=== PATIENT | female | born 1950 | race Caucasian/White ===

== ENCOUNTER 2019-02-25 15:01 | Observation (INO) ==
[2019-02-25] MEDS ORDERED: ONDANSETRON 4 MG/2 ML VIAL IV STA (15:28)
[2019-02-25] MEDS ORDERED: PANTOPRAZOLE 40 MG VIAL IV STA (15:28)
[2019-02-25 15:55] LABS: Basophils % 0.4 % (0.0-0.8); Eosinophils % 0.4 % (0.00-10.9); Hematocrit 43.2 VOL% (35.7-47.0); Hemoglobin 14.4 GM/DL (12.0-16.0); Immature Granulocytes % 0.4 %; Immature Granulocytes Absolute 0.04 #; Lymphocytes # 1.3 10*3/uL (1.4-4.0); Lymphocytes % 11.7 % (21.3-54.2); Mean Corpuscular HGB Conc 33.3 GM/DL (32-36); Mean Corpuscular Volume 88.5 FL (87-102); Mean Platelet Volume 9.3 FL (9.6-12.0); Monocytes % 5.4 % (1.7-12.7); Neutrophils % 81.7 % (38.7-73.9); Platelet Count 255 T/CUMM (130-400); Red Blood Count 4.88 MC/CUMM (3.8-5.5); Red Cell Distribution Width 14.5 % (9.3-17.3); White Blood Count 11.2 T/CUMM (4-12)
[2019-02-25 16:17] LABS: PT Patient Result 10.9 SECS (9.6-12.2); Partial Thromboplastin Time 25.9 SECS (20.8-36.0)
[2019-02-25 16:21] LABS: Albumin 3.7 G/DL (3.4-5.0); Bilirubin,Total 0.6 MG/DL (0.2-1.0); Calcium 10.1 MG/DL (8.5-10.1); Osmolality,Calculated 272.5 MOS/KG (273-304); Total Protein 8.8 G/DL (6.4-8.3)
[2019-02-25] MEDS ORDERED: SODIUM CHLORIDE 0.9% 1,000 ML IV STA (16:58)
[2019-02-25] MEDS ORDERED: ONDANSETRON 4 MG/2 ML VIAL IV PRN (18:22)
[2019-02-25] MEDS ORDERED: ACETAMINOPHEN 325 MG TABLET PO PRN (18:22)
[2019-02-25] MEDS ORDERED: traZODone 50 MG TABLET PO PRN (18:31)
[2019-02-25] MEDS ORDERED: ENOXAPARIN 40 MG/0.4 ML SYRINGE SUBCUT SCH (21:00)
[2019-02-25 21:42] LABS: Hematocrit 40.4 VOL% (35.7-47.0); Hemoglobin 13.5 GM/DL (12.0-16.0)
[2019-02-25] MEDS: OXcarbazepine 300 MG TABLET PO SCH (21:46)
[2019-02-25] MEDS: QUEtiapine 100 MG TABLET PO SCH (21:47)
[2019-02-25] MEDS: ALLOPURINOL 100 MG TABLET PO SCH (21:47)
[2019-02-25] MEDS: GABAPENTIN 400 MG CAPSULE PO SCH (21:54)
[2019-02-25] MEDS: SODIUM CHLORIDE 0.9% 1,000 ML IV SCH (21:58)
[2019-02-26 03:00] LABS: Basophils # 0.1 10*3/uL (0.0-0.2); Basophils % 0.5 % (0.0-0.8); Eosinophils # 0.1 10*3/uL (0.0-0.87); Eosinophils % 0.7 % (0.00-10.9); Hematocrit 38.6 VOL% (35.7-47.0); Immature Granulocytes % 0.5 %; Immature Granulocytes Absolute 0.06 #; Lymphocytes # 3.5 10*3/uL (1.4-4.0); Lymphocytes % 27.7 % (21.3-54.2); Mean Corpuscular HGB Conc 33.7 GM/DL (32-36); Mean Corpuscular Volume 89.4 FL (87-102); Mean Platelet Volume 9.3 FL (9.6-12.0); Neutrophils % 62.6 % (38.7-73.9); Platelet Count 238 T/CUMM (130-400); Red Blood Count 4.32 MC/CUMM (3.8-5.5); Red Cell Distribution Width 14.5 % (9.3-17.3); White Blood Count 12.8 T/CUMM (4-12)
[2019-02-26 03:15] LABS: Calcium 9.1 MG/DL (8.5-10.1); Osmolality,Calculated 274.1 MOS/KG (273-304); Risk Ratio 2.96; Thyroid Stimulating Hormone 0.292 uIU/ml (0.358-3.74); VLDL CHOLESTEROL 16.6 MG/DL
[2019-02-26 05:49] LABS: INR 0.9; PT Patient Result 10.3 SECS (9.6-12.2)
[2019-02-26] MEDS: SODIUM CHLORIDE 0.9% 1,000 ML IV SCH (06:39)
[2019-02-26] MEDS ORDERED: hydroCHLOROthiazide 12.5 MG CAPSULE PO SCH (09:00)
[2019-02-26] MEDS ORDERED: LEVOTHYROXINE 100 MCG TABLET PO SCH (09:00)
[2019-02-26] MEDS ORDERED: PANTOPRAZOLE 40 MG TABLET PO SCH (09:00)
[2019-02-26] MEDS: GABAPENTIN 400 MG CAPSULE PO SCH (09:30)
[2019-02-26] MEDS: QUEtiapine 100 MG TABLET PO SCH (09:33)
[2019-02-26] MEDS: OXcarbazepine 300 MG TABLET PO SCH (09:34)
[2019-02-26] MEDS: ALLOPURINOL 100 MG TABLET PO SCH (09:35)
[2019-02-26 10:30] LABS: Hemoglobin 11.6 GM/DL (12.0-16.0)
[2019-02-26 12:17] VITALS: BP 124/68
== END 2019-02-26 15:15 | disposition home or self-care (01) ==
LOC: N.ED 15:01 → N.EDINP 18:22 → INTOOBSV 18:22 → N.5E 20:01
PROVIDERS: ADMIT Internal Medicine; ATTEND Internal Medicine

== ENCOUNTER 2019-06-30 05:25 | Inpatient (IN) ==
[2019-06-30] MEDS ORDERED: NALOXONE 0.4 MG/ML VIAL IV ONE (05:31)
[2019-06-30] MEDS ORDERED: ATROPINE 1 MG/10 ML SYRINGE IV ONE (05:31)
[2019-06-30] MEDS ORDERED: VECURONIUM 10 MG VIAL IV ONE (05:35)
[2019-06-30] MEDS ORDERED: VECURONIUM 10 MG VIAL IV STA (05:42)
[2019-06-30] MEDS ORDERED: ETOMIDATE 20 MG/10 ML VIAL IV ONE (05:42)
[2019-06-30 05:45] LABS: ABG Base Excess -8.4 MMOL/L (-2.5-2.5); ABG HCO3 17.7 MMOL/L (20-26); ABG Oxygen Saturation 95.9 % (95-100); ABG PCO2 37.4 MM HG (35-48); ABG PH 7.285 (7.35-7.45); ABG PO2 90.7 MM HG (80-95); ABG TCO2 15.9 MMOL/L (23-27); Allen Test Positive
[2019-06-30 05:46] LABS: Basophils # 0.1 10*3/uL (0.0-0.2); Basophils % 0.7 % (0.0-0.8); Eosinophils # 0.3 10*3/uL (0.0-0.87); Hematocrit 40.1 VOL% (35.7-47.0); Hemoglobin 12.5 GM/DL (12.0-16.0); Immature Granulocytes % 0.7 %; Immature Granulocytes Absolute 0.09 #; Lymphocytes # 5.5 10*3/uL (1.4-4.0); Mean Corpuscular HGB Conc 31.2 GM/DL (32-36); Mean Corpuscular Volume 92.8 FL (87-102); Mean Platelet Volume 9.9 FL (9.6-12.0); Monocytes % 7.3 % (1.7-12.7); Neutrophils % 48.3 % (38.7-73.9); Platelet Count 281 T/CUMM (130-400); Red Blood Count 4.32 MC/CUMM (3.8-5.5); White Blood Count 13.5 T/CUMM (4-12)
[2019-06-30] MEDS ORDERED: SODIUM CHLORIDE 0.9% 1,000 ML IV STA (05:52)
[2019-06-30] MEDS ORDERED: SODIUM BICARBONATE 50 MEQ/50 ML VIAL IV STA (06:00)
[2019-06-30 06:01] LABS: PT Patient Result 11.1 SECS (9.6-12.2)
[2019-06-30 06:09] LABS: Alanine Aminotransferase 18 U/L (13-56); Albumin 3.1 G/DL (3.4-5.0); Alkaline Phosphatase 91 U/L (45-117); Aspartate Amino Transferase 21 U/L (0-37); Bilirubin,Total < 0.39 MG/DL (0.2-1.0); Blood Urea Nitrogen 28 MG/DL (7-18); Calcium 8.5 MG/DL (8.5-10.1); Estimated Glom Filtration Rate 0 ML/MIN; Glucose 306 MG/DL (74-106); Osmolality,Calculated 292.7 MOS/KG (273-304); Total Protein 7.1 G/DL (6.4-8.3)
[2019-06-30] MEDS ORDERED: MIDAZOLAM 2 MG/2 ML VIAL ONE (06:09)
[2019-06-30] MEDS ORDERED: LIDOCAINE 1%/EPI INJ 20 ML VIAL ONE (06:09)
[2019-06-30] MEDS ORDERED: fentaNYL 100 MCG/2 ML VIAL ONE (06:09)
[2019-06-30] MEDS ORDERED: PHENYLEPHRINE DRIP 40 MG/250 ML PREMIX IV PRN (06:10)
[2019-06-30] MEDS ORDERED: PHENYLEPHRINE DRIP 40 MG/250 ML PREMIX IV ONE (06:13)
[2019-06-30 07:08] LABS: Apearance,Urine CLEAR (Clear); Bacteria,Urine Many /HPF (Few); Bilirubin,Urine Negative (Negative); Blood, Urine Negative (Negative); Glucose,Urine (UA) Negative (Negative); Ketones,Urine Negative (Negative); Nitrite,Urine Positive (Negative); Protein,Urine Negative; RBC,Urine 3 /HPF (0-4); Squamous Epithelial Cell,Urine Occasional /HPF (0-10); Urine Color Yellow (Yellow); Urine Specific Gravity 1.025 (1.001-1.035); Urine Urobilinogen < 2.0 EU/DL (0.2-1.0); WBC,Urine 5 /HPF (0-6)
[2019-06-30 07:13] LABS: Barbiturates Screen,Urine Negative (Negative); Benzodiazepines Screen,Urine Negative (Negative); Cannabinoid Screen,Urine Negative (Negative); Opiate Screen,Urine Negative (Negative); Phencyclidine Screen,Urine Negative (Negative)
[2019-06-30] MEDS: SODIUM CHLORIDE 0.9% 1,000 ML IV SCH ×2 (07:30→17:12)
[2019-06-30] MEDS: MORPHINE 4 MG/1 ML VIAL IV PRN ×10 (09:29→22:09)
[2019-06-30 10:32] LABS: Troponin I 0.383 NG/ML (0.00-0.045)
[2019-06-30 17:00] LABS: Calcium 8.5 MG/DL (8.5-10.1); Osmolality,Calculated 283.4 MOS/KG (273-304)
[2019-07-01] MEDS: SODIUM CHLORIDE 0.9% 1,000 ML IV SCH ×3 (00:22→15:09)
[2019-07-01] MEDS: MORPHINE 4 MG/1 ML VIAL IV PRN ×2 (04:52→21:43)
[2019-07-01 05:22] LABS: Basophils % 0.5 % (0.0-0.8); Eosinophils # 0.2 10*3/uL (0.0-0.87); Eosinophils % 2.2 % (0.00-10.9); Hematocrit 41.4 VOL% (35.7-47.0); Immature Granulocytes % 0.3 %; Immature Granulocytes Absolute 0.03 #; Lymphocytes % 33.4 % (21.3-54.2); Mean Corpuscular HGB Conc 31.4 GM/DL (32-36); Mean Corpuscular Volume 91.6 FL (87-102); Monocytes % 8.6 % (1.7-12.7); Platelet Count 166 T/CUMM (130-400); Red Blood Count 4.52 MC/CUMM (3.8-5.5); Red Cell Distribution Width 13.7 % (9.3-17.3); White Blood Count 8.8 T/CUMM (4-12)
[2019-07-01 05:35] LABS: Calcium 8.1 MG/DL (8.5-10.1); Osmolality,Calculated 277.7 MOS/KG (273-304)
[2019-07-01] MEDS ORDERED: MAGNESIUM SULF RIDER 4 GM in PREMIX 1 EACH IV PRN (05:48)
[2019-07-01] MEDS: MAGNESIUM SULF RIDER 2 GM in PREMIX 1 EACH IV PRN (06:01)
[2019-07-01] MEDS ORDERED: ACETAMINOPHEN 325 MG TABLET PO PRN (07:25)
[2019-07-01] MEDS: ONDANSETRON 4 MG/2 ML VIAL IV PRN (07:44)
[2019-07-01 08:04] LABS: Troponin I 0.473 NG/ML (0.00-0.045)
[2019-07-01] MEDS: allopurinoL 100 MG TABLET PO SCH ×2 (11:13→22:08)
[2019-07-01] MEDS: LEVOTHYROXINE 100 MCG TABLET PO SCH (11:13)
[2019-07-01] MEDS: cefTRIAXone 1,000 MG in SYRINGE 1 EACH IV SCH (11:14)
[2019-07-01] MEDS: QUEtiapine 100 MG TABLET PO SCH ×2 (11:14→22:05)
[2019-07-01] MEDS: GABAPENTIN 400 MG CAPSULE PO SCH ×2 (15:09→22:07)
[2019-07-01] MEDS: OXcarbazepine 300 MG TABLET PO SCH (22:07)
[2019-07-02] MEDS: MORPHINE 4 MG/1 ML VIAL IV PRN ×2 (01:37→05:32)
[2019-07-02] MEDS: ONDANSETRON 4 MG/2 ML VIAL IV PRN ×2 (01:37→21:23)
[2019-07-02] MEDS: QUEtiapine 100 MG TABLET PO SCH ×2 (08:36→21:18)
[2019-07-02] MEDS: LEVOTHYROXINE 100 MCG TABLET PO SCH (08:37)
[2019-07-02] MEDS: allopurinoL 100 MG TABLET PO SCH ×2 (08:37→21:21)
[2019-07-02] MEDS: GABAPENTIN 400 MG CAPSULE PO SCH ×3 (08:37→21:21)
[2019-07-02] MEDS: OXcarbazepine 300 MG TABLET PO SCH ×2 (08:37→21:19)
[2019-07-02] MEDS: cefTRIAXone 1,000 MG in SYRINGE 1 EACH IV SCH (10:06)
[2019-07-02 10:30] LABS: Osmolality,Calculated 279.5 MOS/KG (273-304)
[2019-07-02] MEDS ORDERED: MAGNESIUM SULF RIDER 2 GM in PREMIX 1 EACH IV ONE (11:17)
[2019-07-02] MEDS ORDERED: MAGNESIUM GLUCONATE 500 MG TABLET PO ONE (11:20)
[2019-07-02] MEDS ORDERED: POTASSIUM CHLORIDE 20 MEQ TABLET PO ONE (11:21)
[2019-07-02 14:21] LABS: Troponin I 0.118 NG/ML (0.00-0.045)
[2019-07-02 14:23] LABS: ABG Base Excess 4.1 MMOL/L (-2.5-2.5); ABG Oxygen Saturation 96.2 % (95-100); ABG PCO2 50.6 MM HG (35-48); ABG PH 7.384 (7.35-7.45); ABG PO2 81.1 MM HG (80-95); ABG TCO2 26.9 MMOL/L (23-27); Allen Test Positive
[2019-07-02] MEDS: SODIUM CHLORIDE 0.9% 1,000 ML IV SCH (15:46)
[2019-07-02] MEDS: APIXABAN 5 MG TABLET PO SCH (21:21)
[2019-07-03] MEDS: SODIUM CHLORIDE 0.9% 1,000 ML IV SCH (06:32)
[2019-07-03] MEDS: OXcarbazepine 300 MG TABLET PO SCH (08:54)
[2019-07-03] MEDS: LEVOTHYROXINE 100 MCG TABLET PO SCH (08:54)
[2019-07-03] MEDS: GABAPENTIN 400 MG CAPSULE PO SCH ×2 (08:54→14:22)
[2019-07-03] MEDS: QUEtiapine 100 MG TABLET PO SCH (08:55)
[2019-07-03] MEDS: APIXABAN 5 MG TABLET PO SCH (08:56)
[2019-07-03] MEDS: allopurinoL 100 MG TABLET PO SCH (08:56)
[2019-07-03] MEDS ORDERED: lisinopriL 5 MG TABLET PO SCH (09:02)
[2019-07-03 10:09] LABS: Calcium 8.6 MG/DL (8.5-10.1); Osmolality,Calculated 275.7 MOS/KG (273-304)
[2019-07-03] MEDS: MAGNESIUM SULF RIDER 2 GM in PREMIX 1 EACH IV PRN (10:57)
[2019-07-03] MEDS: cefTRIAXone 1,000 MG in SYRINGE 1 EACH IV SCH (10:57)
[2019-07-03 16:36] VITALS: BP 133/86
== END 2019-07-03 17:13 | disposition home or self-care (01) | DRG 917 ==
LOC: EDBD → EDUNIT# → N.ED 05:25 → N.EDINP 05:25 → N.ICU 06:21 → SUATTDRO 09:22 → N.TELEN 07-01 14:07
PROVIDERS: ADMIT Internal Medicine; ATTEND Internal Medicine

== ENCOUNTER 2020-09-12 04:23 | Inpatient (IN) ==
[2020-09-12] MEDS ORDERED: ASPIRIN 325 MG TABLET PO STA (04:50)
[2020-09-12] MEDS ORDERED: ONDANSETRON 4 MG/2 ML VIAL IV STA (04:50)
[2020-09-12] MEDS ORDERED: VECURONIUM 10 MG VIAL IV ONE ×2 (05:25→05:34)
[2020-09-12 05:26] LABS: Basophils % 0.5 % (0.0-0.8); Eosinophils # 0.1 10*3/uL (0.0-0.87); Eosinophils % 1.7 % (0.00-10.9); Hematocrit 42.2 VOL% (35.7-47.0); Hemoglobin 13.4 GM/DL (12.0-16.0); Immature Granulocytes % 0.5 %; Immature Granulocytes Absolute 0.04 #; Lymphocytes # 2.1 10*3/uL (1.4-4.0); Lymphocytes % 27.3 % (21.3-54.2); Mean Corpuscular HGB Conc 31.8 GM/DL (32-36); Mean Corpuscular Volume 94.4 FL (87-102); Mean Platelet Volume 11.1 FL (9.6-12.0); Monocytes % 8.4 % (1.7-12.7); Neutrophils % 61.6 % (38.7-73.9); Platelet Count 123 T/CUMM (130-400); Red Blood Count 4.47 MC/CUMM (3.8-5.5); White Blood Count 7.5 T/CUMM (4-12)
[2020-09-12] MEDS ORDERED: ETOMIDATE 20 MG/10 ML VIAL IV ONE (05:34)
[2020-09-12] MEDS ORDERED: VECURONIUM 10 MG VIAL IV STA (05:38)
[2020-09-12] MEDS ORDERED: ETOMIDATE 20 MG/10 ML VIAL IV STA (05:38)
[2020-09-12 05:39] LABS: Alanine Aminotransferase 28 U/L (13-56); Albumin 3.4 G/DL (3.4-5.0); Alkaline Phosphatase 115 U/L (45-117); Aspartate Amino Transferase 36 U/L (0-37); Bilirubin,Total < 0.39 MG/DL (0.2-1.0); Blood Urea Nitrogen 26 MG/DL (7-18); Calcium 8.8 MG/DL (8.5-10.1); Carbon Dioxide 26 MMOL/L (21-32); Estimated Glom Filtration Rate 34 ML/MIN; Glucose 181 MG/DL (74-106); Osmolality,Calculated 288.4 MOS/KG (273-304); Potassium 5.8 MMOL/L (3.5-5.1); Sodium 140 MMOL/L (136-145); Total Protein 7.4 G/DL (6.4-8.2)
[2020-09-12] MEDS ORDERED: INSULIN REGULAR 100 UNIT/ML ONE (05:48)
[2020-09-12] MEDS ORDERED: INSULIN REGULAR 100 UNIT/ML IV STA (05:55)
[2020-09-12] MEDS ORDERED: DEXTROSE 50% 25 GM/50 ML VIAL IV STA (05:55)
[2020-09-12] MEDS ORDERED: ATROPINE 1 MG/10 ML SYRINGE IV STA (05:55)
[2020-09-12] MEDS ORDERED: CALCIUM CHLORIDE 1,000 MG/10 ML SYRINGE IV STA (05:55)
[2020-09-12 06:02] LABS: Bacteria,Urine Occasional /HPF (Few); Bilirubin,Urine Negative (Negative); Blood, Urine Negative (Negative); Glucose,Urine (UA) 50 mg/dL (Negative); Hyaline Casts,Urine 21 /LPF (0-3); Ketones,Urine Negative (Negative); Mucus,Urine Occasional /LPF (Occasional); Nitrite,Urine Negative (Negative); Protein,Urine 100 MG/DL; RBC,Urine 8 /HPF (0-4); Renal Epithelial Cells,Urine Occasional /HPF (<1); Squamous Epithelial Cell,Urine Occasional /HPF (0-10); Urine Appearance Slightly Hazy (Clear); Urine Color Yellow (Yellow); Urine Specific Gravity 1.013 (1.001-1.035); Urine Urobilinogen < 2.0 EU/DL (0.2-1.0); WBC,Urine 5 /HPF (0-6)
[2020-09-12 06:13] LABS: ABG Base Excess 1.8 MMOL/L (-2.5-2.5); ABG Oxygen Saturation 97.7 % (95-100); ABG PCO2 41.2 MM HG (35-48); ABG PH 7.417 (7.35-7.45); ABG TCO2 22.9 MMOL/L (23-27)
[2020-09-12 06:14] LABS: Barbiturates Screen,Urine Negative (Negative); Benzodiazepines Screen,Urine Negative (Negative); Cannabinoid Screen,Urine Negative (Negative); Opiate Screen,Urine Negative (Negative); Phencyclidine Screen,Urine Negative (Negative)
[2020-09-12] MEDS ORDERED: HEPARIN/NACL 0.9% 2 UNITS/ML 500 ML IV ONE (06:14)
[2020-09-12] MEDS ORDERED: LIDOCAINE 1% 20 ML VIAL ONE ×2 (06:14→06:16)
[2020-09-12] MEDS ORDERED: MAGNESIUM SULF RIDER 2 GM in PREMIX 1 EACH IV PRN (07:41)
[2020-09-12] MEDS ORDERED: ONDANSETRON 4 MG/2 ML VIAL IV PRN (07:41)
[2020-09-12] MEDS ORDERED: MAGNESIUM SULF RIDER 4 GM in PREMIX 1 EACH IV PRN (07:41)
[2020-09-12 07:47] LABS: INR 1.1; PT Patient Result 11.6 SECS (9.8-11.9); Partial Thromboplastin Time 23.1 SECS (23.9-33.8)
[2020-09-12 08:21] LABS: Troponin I 0.344 NG/ML (0.00-0.045)
[2020-09-12] MEDS ORDERED: PANTOPRAZOLE 40 MG TABLET PO SCH (09:00)
[2020-09-12] MEDS: LEVOTHYROXINE 100 MCG VIAL IV SCH (10:11)
[2020-09-12] MEDS: PANTOPRAZOLE 40 MG VIAL IV SCH (10:14)
[2020-09-12] MEDS: HYDROCORTISONE 100 MG VIAL IV SCH ×2 (10:15→17:47)
[2020-09-12] MEDS: ENOXAPARIN 40 MG/0.4 ML SYRINGE SUBCUT SCH (10:17)
[2020-09-12 10:26] LABS: Troponin I 0.707 NG/ML (0.00-0.045)
[2020-09-12 10:32] LABS: Calcium 9.7 MG/DL (8.5-10.1); Osmolality,Calculated 288.3 MOS/KG (273-304); Potassium 4.6 MMOL/L (3.5-5.1)
[2020-09-12] MEDS: QUEtiapine 100 MG TABLET NG SCH ×2 (11:46→20:52)
[2020-09-12] MEDS: ASPIRIN 325 MG TABLET PO SCH (11:46)
[2020-09-12] MEDS: OXcarbazepine 300 MG TABLET NG SCH ×2 (11:47→20:55)
[2020-09-12] MEDS: ALBUTEROL 2.5 MG/3 ML NEB RESP TX SCH ×2 (13:29→19:31)
[2020-09-12 13:53] LABS: Troponin I 0.729 NG/ML (0.00-0.045)
[2020-09-12] MEDS: ATORVASTATIN 20 MG TABLET PO SCH (20:52)
[2020-09-12] MEDS ORDERED: SODIUM CHLORIDE 0.9% 500 ML IV ONE ×2 (21:51→23:45)
[2020-09-13] MEDS: ALBUTEROL 2.5 MG/3 ML NEB RESP TX SCH ×4 (00:02→19:25)
[2020-09-13 00:46] LABS: Albumin 2.8 G/DL (3.4-5.0); Bilirubin,Total 0.4 MG/DL (0.2-1.0); Calcium 8.7 MG/DL (8.5-10.1); Osmolality,Calculated 287.4 MOS/KG (273-304); Potassium 4.2 MMOL/L (3.5-5.1); Total Protein 6.6 G/DL (6.4-8.2)
[2020-09-13] MEDS: HYDROCORTISONE 100 MG VIAL IV SCH ×3 (00:57→17:30)
[2020-09-13 04:53] LABS: Basophils % 0.2 % (0.0-0.8); Eosinophils % 0.2 % (0.00-10.9); Hemoglobin 12.1 GM/DL (12.0-16.0); Immature Granulocytes % 0.4 %; Immature Granulocytes Absolute 0.04 #; Lymphocytes # 1.3 10*3/uL (1.4-4.0); Lymphocytes % 14.5 % (21.3-54.2); Mean Corpuscular HGB Conc 32.7 GM/DL (32-36); Mean Platelet Volume 10.4 FL (9.6-12.0); Neutrophils % 77.7 % (38.7-73.9); Platelet Count 157 T/CUMM (130-400); Red Blood Count 4.11 MC/CUMM (3.8-5.5); Red Cell Distribution Width 13.9 % (9.3-17.3); White Blood Count 9.1 T/CUMM (4-12)
[2020-09-13 05:26] LABS: Calcium 8.8 MG/DL (8.5-10.1); Osmolality,Calculated 287.5 MOS/KG (273-304); Potassium 4.5 MMOL/L (3.5-5.1)
[2020-09-13 05:33] LABS: Albumin 2.9 G/DL (3.4-5.0); Bilirubin,Total 0.5 MG/DL (0.2-1.0); Calcium 8.9 MG/DL (8.5-10.1); Osmolality,Calculated 287.5 MOS/KG (273-304); Potassium 4.6 MMOL/L (3.5-5.1); Total Protein 6.5 G/DL (6.4-8.2)
[2020-09-13] MEDS ORDERED: PHENYLEPHRINE DRIP 40 MG/250 ML PREMIX IV PRN (05:51)
[2020-09-13] MEDS: LEVOTHYROXINE 100 MCG VIAL IV SCH (06:58)
[2020-09-13] MEDS ORDERED: LIDOCAINE 1% 20 ML VIAL ONE (08:50)
[2020-09-13] MEDS ORDERED: ceFAZolin 1,000 MG VIAL ONE (08:50)
[2020-09-13] MEDS ORDERED: DEXTROSE 50% 25 GM/50 ML VIAL IV PRN (08:50)
[2020-09-13] MEDS ORDERED: TISSUE ADHESIVE 1 EACH APPLICATOR TOP ONE (08:50)
[2020-09-13] MEDS ORDERED: GLUCAGON 1 MG VIAL IM PRN (08:50)
[2020-09-13] MEDS ORDERED: MIDAZOLAM 2 MG/2 ML VIAL ONE (10:23)
[2020-09-13] MEDS ORDERED: ceFAZolin 1,000 MG in SYRINGE 1 EACH IV ONE (10:30)
[2020-09-13] MEDS ORDERED: ceFAZolin 1,000 MG VIAL IRRIG ONE (10:30)
[2020-09-13] MEDS: ENOXAPARIN 40 MG/0.4 ML SYRINGE SUBCUT SCH (11:14)
[2020-09-13] MEDS: ASPIRIN 325 MG TABLET PO SCH (13:18)
[2020-09-13] MEDS: PANTOPRAZOLE 40 MG VIAL IV SCH (13:18)
[2020-09-13] MEDS: OXcarbazepine 300 MG TABLET NG SCH ×2 (13:19→20:10)
[2020-09-13] MEDS: QUEtiapine 100 MG TABLET NG SCH ×2 (13:19→20:11)
[2020-09-13] MEDS: INSULIN LISPRO 100 UNIT/ML SUBCUT SCH ×2 (16:01→19:03)
[2020-09-13] MEDS: ATORVASTATIN 20 MG TABLET PO SCH (20:10)
[2020-09-13] MEDS: ZALEPLON 5 MG CAPSULE PO PRN (20:12)
[2020-09-14] MEDS: HYDROCORTISONE 100 MG VIAL IV SCH (00:19)
[2020-09-14] MEDS: INSULIN LISPRO 100 UNIT/ML SUBCUT SCH ×6 (00:20→21:11)
[2020-09-14] MEDS: ZALEPLON 5 MG CAPSULE PO PRN (00:21)
[2020-09-14] MEDS: ALBUTEROL 2.5 MG/3 ML NEB RESP TX SCH ×4 (02:44→20:35)
[2020-09-14 04:51] LABS: Basophils % 0.2 % (0.0-0.8); Eosinophils % 0.1 % (0.00-10.9); Hematocrit 35.1 VOL% (35.7-47.0); Hemoglobin 11.6 GM/DL (12.0-16.0); Immature Granulocytes % 0.8 %; Immature Granulocytes Absolute 0.07 #; Lymphocytes % 11.8 % (21.3-54.2); Mean Corpuscular Volume 90.9 FL (87-102); Mean Platelet Volume 10.2 FL (9.6-12.0); Monocytes % 7.9 % (1.7-12.7); Neutrophils % 79.2 % (38.7-73.9); Platelet Count 136 T/CUMM (130-400); Red Blood Count 3.86 MC/CUMM (3.8-5.5); Red Cell Distribution Width 14.3 % (9.3-17.3); White Blood Count 8.7 T/CUMM (4-12)
[2020-09-14 05:10] LABS: Calcium 8.1 MG/DL (8.5-10.1); Potassium 4.4 MMOL/L (3.5-5.1)
[2020-09-14 05:14] LABS: Albumin 2.8 G/DL (3.4-5.0); Bilirubin,Total 0.6 MG/DL (0.2-1.0); Calcium 8.3 MG/DL (8.5-10.1); Potassium 4.4 MMOL/L (3.5-5.1); Total Protein 6.7 G/DL (6.4-8.2)
[2020-09-14] MEDS: LEVOTHYROXINE 100 MCG VIAL IV SCH (06:30)
[2020-09-14] MEDS: predniSONE 20 MG TABLET PO SCH (09:10)
[2020-09-14] MEDS: PANTOPRAZOLE 40 MG VIAL IV SCH (09:10)
[2020-09-14] MEDS: OXcarbazepine 300 MG TABLET NG SCH ×2 (09:10→21:10)
[2020-09-14] MEDS: ASPIRIN 325 MG TABLET PO SCH (09:10)
[2020-09-14] MEDS: QUEtiapine 100 MG TABLET NG SCH ×2 (09:10→21:09)
[2020-09-14] MEDS: diphenhydrAMINE CAP 25 MG CAPSULE PO PRN (18:26)
[2020-09-14] MEDS: ATORVASTATIN 20 MG TABLET PO SCH (21:10)
[2020-09-15] MEDS: ALBUTEROL 2.5 MG/3 ML NEB RESP TX SCH ×4 (01:44→19:48)
[2020-09-15] MEDS: LEVOTHYROXINE 100 MCG TABLET PO SCH (05:59)
[2020-09-15 06:15] LABS: Basophils # 0.1 10*3/uL (0.0-0.2); Basophils % 0.7 % (0.0-0.8); Eosinophils # 0.1 10*3/uL (0.0-0.87); Eosinophils % 1.1 % (0.00-10.9); Hematocrit 35.4 VOL% (35.7-47.0); Hemoglobin 11.5 GM/DL (12.0-16.0); Immature Granulocytes % 1.5 %; Immature Granulocytes Absolute 0.14 #; Lymphocytes # 3.2 10*3/uL (1.4-4.0); Mean Corpuscular HGB Conc 32.5 GM/DL (32-36); Mean Corpuscular Volume 91.9 FL (87-102); Mean Platelet Volume 10.2 FL (9.6-12.0); Monocytes % 9.9 % (1.7-12.7); Neutrophils % 51.8 % (38.7-73.9); Platelet Count 133 T/CUMM (130-400); Red Blood Count 3.85 MC/CUMM (3.8-5.5); Red Cell Distribution Width 14.4 % (9.3-17.3); White Blood Count 9.2 T/CUMM (4-12)
[2020-09-15 06:35] LABS: Calcium 8.6 MG/DL (8.5-10.1); Osmolality,Calculated 284.4 MOS/KG (273-304); Potassium 3.7 MMOL/L (3.5-5.1)
[2020-09-15] MEDS: ASPIRIN 325 MG TABLET PO SCH (11:06)
[2020-09-15] MEDS: predniSONE 20 MG TABLET PO SCH (11:06)
[2020-09-15] MEDS: QUEtiapine 100 MG TABLET NG SCH ×2 (11:07→22:21)
[2020-09-15] MEDS: METOPROLOL SUCCINATE XL 50 MG TABLET PO SCH (11:07)
[2020-09-15] MEDS: OXcarbazepine 300 MG TABLET NG SCH ×2 (11:08→22:21)
[2020-09-15] MEDS: PANTOPRAZOLE 40 MG VIAL IV SCH (11:09)
[2020-09-15] MEDS: ENOXAPARIN 40 MG/0.4 ML SYRINGE SUBCUT SCH (11:10)
[2020-09-15] MEDS: INSULIN LISPRO 100 UNIT/ML SUBCUT SCH ×4 (15:12→22:32)
[2020-09-15] MEDS: ACETAMINOPHEN 325 MG TABLET PO PRN (15:30)
[2020-09-15] MEDS: diphenhydrAMINE CAP 25 MG CAPSULE PO PRN (18:30)
[2020-09-15] MEDS: ATORVASTATIN 20 MG TABLET PO SCH (22:21)
[2020-09-15] MEDS: ZALEPLON 5 MG CAPSULE PO PRN (22:32)
[2020-09-16] MEDS: ALBUTEROL 2.5 MG/3 ML NEB RESP TX SCH ×4 (02:15→19:45)
[2020-09-16] MEDS: ZALEPLON 5 MG CAPSULE PO PRN ×2 (04:21→20:43)
[2020-09-16] MEDS: ACETAMINOPHEN 325 MG TABLET PO PRN (04:21)
[2020-09-16] MEDS: LEVOTHYROXINE 100 MCG TABLET PO SCH (06:28)
[2020-09-16 06:33] LABS: Basophils # 0.1 10*3/uL (0.0-0.2); Basophils % 0.7 % (0.0-0.8); Eosinophils # 0.2 10*3/uL (0.0-0.87); Eosinophils % 1.9 % (0.00-10.9); Hematocrit 38.7 VOL% (35.7-47.0); Hemoglobin 12.8 GM/DL (12.0-16.0); Immature Granulocytes % 1.8 %; Immature Granulocytes Absolute 0.18 #; Lymphocytes # 3.7 10*3/uL (1.4-4.0); Lymphocytes % 36.2 % (21.3-54.2); Mean Corpuscular HGB Conc 33.1 GM/DL (32-36); Mean Corpuscular Volume 90.4 FL (87-102); Mean Platelet Volume 9.8 FL (9.6-12.0); Monocytes % 9.8 % (1.7-12.7); Neutrophils % 49.6 % (38.7-73.9); Platelet Count 144 T/CUMM (130-400); Red Blood Count 4.28 MC/CUMM (3.8-5.5); Red Cell Distribution Width 13.9 % (9.3-17.3); White Blood Count 10.2 T/CUMM (4-12)
[2020-09-16 06:52] LABS: Osmolality,Calculated 279.7 MOS/KG (273-304); Potassium 3.7 MMOL/L (3.5-5.1)
[2020-09-16] MEDS: INSULIN LISPRO 100 UNIT/ML SUBCUT SCH ×4 (08:41→20:40)
[2020-09-16] MEDS: ASPIRIN 325 MG TABLET PO SCH (10:42)
[2020-09-16] MEDS: PANTOPRAZOLE 40 MG VIAL IV SCH (10:42)
[2020-09-16] MEDS: amLODIPine 5 MG TABLET PO SCH (10:42)
[2020-09-16] MEDS: ENOXAPARIN 40 MG/0.4 ML SYRINGE SUBCUT SCH (10:42)
[2020-09-16] MEDS: QUEtiapine 100 MG TABLET NG SCH ×2 (10:43→20:42)
[2020-09-16] MEDS: METOPROLOL SUCCINATE XL 50 MG TABLET PO SCH (10:43)
[2020-09-16] MEDS: OXcarbazepine 300 MG TABLET NG SCH ×2 (10:44→20:41)
[2020-09-16] MEDS: diphenhydrAMINE CAP 25 MG CAPSULE PO PRN (18:40)
[2020-09-16] MEDS: predniSONE 20 MG TABLET PO SCH (19:58)
[2020-09-16] MEDS: ATORVASTATIN 20 MG TABLET PO SCH (20:41)
[2020-09-17] MEDS: ALBUTEROL 2.5 MG/3 ML NEB RESP TX SCH ×4 (00:43→19:21)
[2020-09-17] MEDS: ACETAMINOPHEN 325 MG TABLET PO PRN ×2 (04:19→20:07)
[2020-09-17 05:11] LABS: Basophils # 0.1 10*3/uL (0.0-0.2); Eosinophils # 0.4 10*3/uL (0.0-0.87); Eosinophils % 3.9 % (0.00-10.9); Hematocrit 40.1 VOL% (35.7-47.0); Hemoglobin 13.1 GM/DL (12.0-16.0); Immature Granulocytes % 1.9 %; Immature Granulocytes Absolute 0.19 #; Lymphocytes # 2.8 10*3/uL (1.4-4.0); Mean Corpuscular HGB Conc 32.7 GM/DL (32-36); Mean Corpuscular Volume 91.3 FL (87-102); Mean Platelet Volume 9.7 FL (9.6-12.0); Monocytes % 13.3 % (1.7-12.7); Neutrophils % 51.9 % (38.7-73.9); Platelet Count 141 T/CUMM (130-400); Red Blood Count 4.39 MC/CUMM (3.8-5.5); Red Cell Distribution Width 13.8 % (9.3-17.3); White Blood Count 9.8 T/CUMM (4-12)
[2020-09-17 05:32] LABS: Calcium 8.9 MG/DL (8.5-10.1); Osmolality,Calculated 282.7 MOS/KG (273-304); Potassium 3.6 MMOL/L (3.5-5.1)
[2020-09-17] MEDS: LEVOTHYROXINE 100 MCG TABLET PO SCH (05:42)
[2020-09-17] MEDS: INSULIN LISPRO 100 UNIT/ML SUBCUT SCH ×4 (07:55→22:02)
[2020-09-17] MEDS: amLODIPine 5 MG TABLET PO SCH (09:26)
[2020-09-17] MEDS: ENOXAPARIN 40 MG/0.4 ML SYRINGE SUBCUT SCH (09:26)
[2020-09-17] MEDS: ASPIRIN 325 MG TABLET PO SCH (09:26)
[2020-09-17] MEDS: OXcarbazepine 300 MG TABLET NG SCH ×2 (09:27→22:06)
[2020-09-17] MEDS: PANTOPRAZOLE 40 MG VIAL IV SCH (09:27)
[2020-09-17] MEDS: QUEtiapine 100 MG TABLET NG SCH ×2 (09:28→22:04)
[2020-09-17] MEDS: METOPROLOL SUCCINATE XL 50 MG TABLET PO SCH (09:28)
[2020-09-17] MEDS: ZALEPLON 5 MG CAPSULE PO PRN (20:07)
[2020-09-17] MEDS: diphenhydrAMINE CAP 25 MG CAPSULE PO PRN (20:08)
[2020-09-17] MEDS: ATORVASTATIN 20 MG TABLET PO SCH (22:06)
[2020-09-18] MEDS: ALBUTEROL 2.5 MG/3 ML NEB RESP TX SCH ×3 (00:10→13:21)
[2020-09-18 05:13] LABS: Basophils # 0.1 10*3/uL (0.0-0.2); Basophils % 0.6 % (0.0-0.8); Eosinophils # 0.4 10*3/uL (0.0-0.87); Eosinophils % 3.8 % (0.00-10.9); Hematocrit 40.3 VOL% (35.7-47.0); Hemoglobin 13.1 GM/DL (12.0-16.0); Immature Granulocytes % 1.4 %; Immature Granulocytes Absolute 0.14 #; Lymphocytes # 2.3 10*3/uL (1.4-4.0); Lymphocytes % 23.3 % (21.3-54.2); Mean Corpuscular HGB Conc 32.5 GM/DL (32-36); Mean Corpuscular Volume 92.4 FL (87-102); Mean Platelet Volume 9.9 FL (9.6-12.0); Neutrophils % 55.9 % (38.7-73.9); Platelet Count 144 T/CUMM (130-400); Red Blood Count 4.36 MC/CUMM (3.8-5.5); Red Cell Distribution Width 13.6 % (9.3-17.3)
[2020-09-18 05:34] LABS: Calcium 8.8 MG/DL (8.5-10.1); Osmolality,Calculated 278.8 MOS/KG (273-304); Potassium 3.7 MMOL/L (3.5-5.1)
[2020-09-18] MEDS: LEVOTHYROXINE 100 MCG TABLET PO SCH (06:44)
[2020-09-18] MEDS: ACETAMINOPHEN 325 MG TABLET PO PRN ×2 (06:50→07:31)
[2020-09-18] MEDS: INSULIN LISPRO 100 UNIT/ML SUBCUT SCH ×2 (07:48→11:49)
[2020-09-18] MEDS: OXcarbazepine 300 MG TABLET NG SCH (08:55)
[2020-09-18] MEDS: ASPIRIN 325 MG TABLET PO SCH (08:55)
[2020-09-18] MEDS: amLODIPine 5 MG TABLET PO SCH (08:55)
[2020-09-18] MEDS: ENOXAPARIN 40 MG/0.4 ML SYRINGE SUBCUT SCH (08:55)
[2020-09-18] MEDS: METOPROLOL SUCCINATE XL 50 MG TABLET PO SCH (08:56)
[2020-09-18] MEDS: QUEtiapine 100 MG TABLET NG SCH (08:56)
[2020-09-18] MEDS: PANTOPRAZOLE 40 MG VIAL IV SCH (08:56)
[2020-09-18 12:15] VITALS: BP 107/53
== END 2020-09-18 14:33 | disposition home health service (06) | DRG 242 ==
LOC: EDBD → EDUNIT# → N.ED 04:23 → N.ICU 06:14 → N.EDINP 06:52 → N.ICU 07:22 → N.TELEN 09-14 16:12
PROVIDERS: ADMIT Internal Medicine Cardiovascular Disease; ATTEND Internal Medicine Cardiovascular Disease